=== PATIENT | female | born 1980 | race Caucasian/White ===

== ENCOUNTER → 2019-10-06 | Outpatient (CLI) | payer OTHER, SELFPAY | PROVIDERS: Family Provider Family Medicine; Visit Provider Family Medicine | DX: R92.8 Other abnormal and inconclusive findings on diagnostic imaging of breast (principal) | CPT/HCPCS: 19083 ×2; 85610; 88305; J2001 ×3 ==

== ENCOUNTER 2020-11-19 09:38 | Outpatient (CLI) | payer OTHER, MEDICAID, SELFPAY ==
[2020-11-19 10:28] LABS: CA 125 28.3 U/mL (0-35); Follicle Stimulating Hormone 9.1 mIU/mL; Luteinizing Hormone 17.5 mIU/mL (0.5-41.7)
== END 2020-11-19 09:39 | disposition home or self-care (01) ==
PROVIDERS: Visit Provider Family Medicine
DX: R19.03 Right lower quadrant abdominal swelling, mass and lump (principal)
CPT/HCPCS: 83001; 83002; 86304

== ENCOUNTER 2020-11-19 13:16 | Outpatient (CLI) | payer OTHER, SELFPAY ==
--- NOTE | 2020-11-19 | CT_ITS ---
WS: [id number] CT ABDOMEN PELVIS TECHNIQUE: Contrast-enhanced CT of the abdomen and pelvis with coronal and sagittal reformatted image s. CLINICAL INFORMATION: RLQ ABDOMINAL MASS COMPARISON: Ultrasound to November 18, 2020 DLP: 990.[address] scans at [facility] use at least one of these dose optimization techniques: automat ed exposure control; mA and/or kV adjustment per patient size (includes targeted exams where dose is matched to clinical indication); or iterative reconstruction. FINDINGS: Low-attenuation predominantly cystic very large pelvic mass extending into the upper abdomen in the m idline. Internal enhancing septations with some soft tissue is seen on the recent ultrasound. Large l ow-attenuation mass measures approximately 13.6 x 25.4 x 20.1 CM. This impinges the bladder with flat tening and posterior displacement of the uterus. Mass effect on the abdominal structures with periphe ral displacement of the small and large bowel. This also compresses the retroperitoneal structures wi th flattening of the inferior vena cava. Hepatic granulomas. Normal portal vein and splenic vein. Small esophageal hiatal hernia. Normal splee n. Adrenal glands are normal. Normal renal parenchymal enhancement. No hydronephrosis. Lung bases are well aerated. Suspected right ovarian tissue with peripheral enhancing cyst measuring 1.[address]/CT abdomen pelvis w con* [id number] IMPRESSION: 1. 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 This measures [id number] x 25.4 x 20.1 CM. Internal enhancing s eptations with a small amount of soft tissue better seen on the ultrasound. 2. Differential considerations include serous and mucinous cystadenoma or cyst adenocarcinoma. Recommend MEASUREMENT SPECIALIST consultation for resection. 3. Compression of the underlying bladder and posterior displacement of the sophie alexandra. 4. Compression of the IVC. 5. Peripheral displacement of the abdominal structures. Peripheral displacemen t of surrounding colon and Small bowel.
[2020-11-19] MEDS: iohexol 300 mg/mL 100 mL Btl IV (14:35)
[2020-11-19] MEDS: iohexol 300 mg/mL 50 mL Btl PO (14:36)
== END 2020-11-19 13:17 | disposition home or self-care (01) ==
LOC: RADWPI 13:18
PROVIDERS: Visit Provider Family Medicine
DX: R19.03 Right lower quadrant abdominal swelling, mass and lump (principal); N85.4 Malposition of uterus
CPT/HCPCS: 74177; Q9967

== ENCOUNTER 2020-11-20 20:31 | Emergency (ER) | payer OTHER, SELFPAY ==
[2020-11-20] VITALS (7 sets, daily range): BP systolic 114–135; BP diastolic 80–100; PULSE 68–129; RESP 16–28; TEMP 36.2; O2SAT 94–99; BMI 32.5
--- NOTE | 2020-11-20 20:45 | CTR_ITS ---
PROCEDURE INFORMATION: Exam: CT Abdomen And Pelvis With Contrast Exam date and time: 11/20/2020 8:49 PM Age: 40 years old Clinical indication: Abdominal pain; Generalized; Patient HX: C/O worsening abd pain w known ovarian cyst - po contrast is from CT yesterday TECHNIQUE: Imaging protocol: Computed tomography of the abdomen and pelvis with contrast. Sagittal and coronal reformatted images were created and reviewed. Radiation optimization: All CT scans at this facility use at least one of these dose optimization techniques: automated exposure control; mA and/or kV adjustment per patient size (includes targeted exams where dose is matched to clinical indication); or iterative reconstruction. Contrast material: OMNI 300; Contrast volume: 95 ml; Contrast route: INTRAVENOUS (IV); COMPARISON: CT abdomen pelvis w con* [id number] 11/19/2020 2:34 PM RADIATION DOSE METRICS: Total DLP (mGy-cm): 1016.97 FINDINGS: Lungs: Visualized lungs are clear. Pleural spaces: No pleural effusion. Heart: Visualized portions of the heart are unremarkable. Liver: Multiple calcified granulomas in the liver are stable. Gallbladder and bile ducts: Stable findings consistent with a previous cholecystectomy. Stable dilatation of the biliary ducts, not unexpected in a patient who has had a prior cholecystectomy. Pancreas: The pancreas is unremarkable. No pancreatic ductal dilatation. Spleen: Multiple calcified granulomas in the spleen are stable. Adrenal glands: The right and left adrenal glands are unremarkable. Kidneys and ureters: The right and left kidneys are unremarkable. The right and left ureters are unremarkable. Stomach and bowel: Stable small hiatal hernia. The small bowel is unremarkable. The colon is unremarkable. Appendix: The appendix is visualized and is unremarkable. No findings to suggest acute appendicitis. Intraperitoneal space: Small amount of free fluid in the pelvis. Small amount of free fluid in the pelvis. No free intraperitoneal air. No loculated fluid collections to suggest an abscess. Vasculature: No evidence for aortic aneurysm or aortic dissection. Hepatic veins, portal veins, splenic vein, and SMV are patent. Lymph nodes: No lymphadenopathy. Urinary bladder: The bladder is incompletely filled, which can limit evaluation. No focal abnormality in the bladder however. The bladder is incompletely filled, which can limit evaluation. No focal abnormality in the bladder however. Reproductive: The uterus is unremarkable. Right ovarian cyst with an enhancing wall, possibly representing a degenerating ovarian cyst. This measures 1.8 x 1.6 cm, stable in size (series 2, image 75). Markedly enlarged multi cystic mass emanating from the left ovary. This measures 3.3 x 1.6 x 23.7 cm, stable in size (series 601, image 40 and series 2, image 44). Multiple internal septations and few small areas of soft tissue density in the mass are stable. Bones/joints: Mild degenerative changes at both the right and left hips. Multilevel degenerative changes of varying severity in the visualized spine. Mild scoliosis in the visualized spine. Osseous findings are stable. Soft tissues: The extra-abdominal soft tissues are unremarkable. CT/CT abdomen pelvis w con* [id number] IMPRESSION: 1. Stable appearance of a large left ovarian multicystic mass, suspicious for a serous or mucinous neoplasm. 2. Small hiatal hernia. 3. Small amount of free fluid in the pelvis. 4. Probable degenerating cyst in the right ovary is stable in size. 5. Small amount of free fluid in the pelvis. 6. Incidental/nonacute findings are listed in the report. Radiation Dose CTDIVOL = (mGy): DLP = 1016.97 (mGy-cm)
[2020-11-20] MEDS: sodium chloride 0.9% 1,000 ML 999 ML IV ×2 (20:49→22:14)
[2020-11-20] MEDS: ondansetron 2 mg/ML SDV 2 mL 4 MG IVP (20:49)
[2020-11-20 20:50] LABS: Basophils # 0.1 10^3/uL (0.0-0.1); Basophils % 0.6 %; Eosinophils # 0.1 10^3/uL (0.0-0.8); Eosinophils % 1.2 %; Hematocrit 46.4 % (37.0-47.0); Hemoglobin 14.9 g/dL (11.5-15.3); Lymphocytes # 2.5 10^3/uL (0.8-4.8); Lymphocytes % 28.3 %; Mean Corpuscular HGB Conc 32.1 g/dL (30.0-36.0); Mean Corpuscular Hemoglobin 27.9 pg (28.0-34.0); Mean Corpuscular Volume 86.7 fL (81-99); Mean Platelet Volume 10.4 fL (7.4-10.4); Monocytes # 0.7 10^3/uL (0.2-0.9); Neutrophils # 5.34 10^3/uL (1.8-7.7); Neutrophils % 61.7 %; Nucleated Red Blood Cells % 0 %; Platelet Count 358 10^3/cmm (130-400); Red Blood Count 5.35 10^6/uL (4.1-5.3); Red Cell Distribution Width 14.4 % (12.1-15.1); White Blood Count 8.7 10^3/uL (4.0-10.0)
[2020-11-20] MEDS: morphine 4 mg/mL SDV 1 mL IVP ×2 (20:51→22:14)
--- NOTE | 2020-11-20 21:03 | W.ED.ABDPA2 ---
HPI - Abdominal Pain General: Chief Complaint: Abdominal Pain Stated Complaint: RLQ ABD PAIN Time Seen by Provider: 11/20/20 20:36 Source: patient Mode of arrival: ambulatory Limitations: no limitations History of Present Illness: HPI narrative: 40-year-old female patient presents to the emergency department with acute onset of abdominal pain. She reports was diagnosed yesterday with a large abdominal/pelvic mass. States it was not cancerous so she celebrated by drinking 1/5 of whiskey. She reports lay down to go to sleep at 3 PM this afternoon, had sudden onset of awakening with severe abdominal pain and vomiting. She reports pain is intense and is the worst she has ever felt. 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 Mass measured 3.6 x 25.4 x 20.1 cm. She reports has appointment scheduled with specialty for removal of the mass. She is scheduled with a specialist in [place]. She reports ate at approximately 4 PM this afternoon. She reports bowel movements have been normal. MD elicited complaint: abdominal pain Pain Consistency: constant Location: Periumbilical, RUQ and RLQ Severity: severe Quality: sharp Exacerbating factors: nothing Relieving factors: nothing Associated Symptoms: Reports bloating, heartburn, nausea and vomiting; Denies chills, constipation, diarrhea, dysuria, fever(s) and hematochezia Related Data: Date of Last Menstrual Period: 11/04/20 Review of Systems General: Reports: 10 or more systems reviewed and unremarkable except in HPI and below Const: Denies: fever(s), chills or diaphoresis Eyes: Denies: blurry vision or eye redness ENMT: Denies: throat pain, dental pain or disequilibrium Card: Denies: chest pain, palpitations or irregular heart rhythm Resp: Denies: dyspnea, productive cough, non-productive cough or wheezing GI: Reports: abdominal pain, nausea, vomiting, heartburn and bloating; Denies: diarrhea, constipation, pain on defecation or hematochezia : Denies: difficulty voiding or dysuria Musc: Denies: neck pain or back pain Skin/Breast: Denies: rash or pruritus Neuro: Denies: headache(s), weakness in extremities or behavioral changes Psych: Denies: anxiety or depression Miguel/Lymph: Denies: easy bruising PFSH ED PFSH: Surgical History History of cholecystectomy Family History Mother Cervical cancer Skin cancer Diabetes Social History Smoking and tobacco status: current every day smoker cigarettes Packs smoked per day: 1 Alcohol intake: never Adopted: No Caregiver/support person: No Lives independently: Yes Household members: spouse and children Marital status: Current occupational status: unemployed History of recent travel: No Sexually active: Yes Current gender identity: Female Female Reproductive History: Date of last menstrual period: 11/04/20 Physical Exam Const: COMMON NORMALS: patient oriented x3, healthy appearing, alert and well nourished GENERAL APPEARANCE: cooperative, well kempt, well developed, in distress (pain), anxious and well hydrated; not ill appearing, not frail appearing and no odor of alcohol detected NUTRITIONAL APPEARANCE: obese ORIENTATION/CONSCIOUSNESS: Yes awake, Yes oriented to person, Yes oriented to place and Yes oriented to time HENMT: COMMON NORMALS: normocephalic, atraumatic, Normal external nose present and moist oral mucous membranes HEAD & SCALP: normal to inspection, normocephalic and atraumatic FACE & SINUS: normal facial exam and face symmetric NOSE: Normal external nose present Eye: COMMON NORMALS: Equal, round and reactive pupils present and EOMs intact bilaterally GENERAL EYE: appearance normal, both eyes and all related structures PUPIL: Yes Equal, round and reactive pupils present Neck/C-Spine: COMMON NORMALS: full ROM, no lymphadenopathy and supple GENERAL: Yes normal visual inspection and Yes trachea midline CERVICAL SPINE: Yes cervical ROM normal Lymph: LYMPHATIC: no lymphadenopathy noted Chest: COMMONS NORMALS: normal inspection of the chest and normal palpation of entire chest wall Resp: COMMON NORMALS: normal respiratory effort, No retractions and clear to auscultation bilaterally EFFORT & INSPECTION: Yes able to speak in complete sentences, Yes symmetric chest movement and Yes labored (due to abdominal pain) AUSCULTATION: clear to auscultation bilaterally Cardio: COMMON NORMALS: regular rhythm, S1 normal heart sound present, S2 normal heart sound present and Peripheral pulses 2+ throughout RATE: tachycardic RHYTHM: regular rhythm HEART SOUNDS: S1 normal heart sound present and S2 normal heart sound present PERIPHERAL PULSES: Peripheral pulses 2+ throughout GI: INSPECTION: No abdominal wall ecchymosis and Yes abdominal distension AUSCULTATION: Yes Hypoactive bowel sounds present PALPATION: Yes Tenderness to palpation present (GI) Details: RLQ, RUQ and other (Periumbilical), Yes Guarding due to palpation present (GI) in the RLQ and in the RUQ, Yes Rigid due to palpation Location: RLQ and RUQ, No Hernia present, Yes Palpable mass present (Centrally periumbilical), No Ascites present, No Abdominal wall crepitus present and Yes Rebound tenderness present : BLADDER/KIDNEY EXAM: Yes CVA tenderness on the right EXTERNAL FEMALE EXAM: No Hernia present Back/Pelvis: COMMON NORMALS: thoracic and lumbar spine normal to inspection Extremity: COMMON NORMALS: normal to inspection and capillary refill normal Neuro: COMMON NORMALS: patient oriented x3 and no focal motor deficits SENSORIUM/ORIENTATION: Yes alert, Yes oriented to person, Yes oriented to place and Yes oriented to time Psych: COMMON NORMALS: mental status grossly normal, Normal thought process present and cooperative APPEARANCE: Yes well kempt ACTIVITY/MOTOR BEHAVIOR: Yes appropriate eye contact THOUGHT PROCESS: Normal thought process present Skin: COMMON NORMALS: no rashes or lesions noted and turgor normal GENERAL SKIN EXAM: no rashes or lesions noted and turgor normal Course Vital Signs: Vital signs: Vital Signs Temperature 97.2 F L 11/20/20 20:37 Pulse Rate 68 11/21/20 00:53 Respiratory Rate 18 11/21/20 00:53 Blood Pressure 126/44 11/21/20 00:53 Pulse Oximetry 96 11/21/20 00:53 MDM - Abdominal Pain MDM Narrative: Medical decision making narrative: 40-year-old female patient presents to the emergency department with severe abdominal pain following ingestion of 1/5 of whiskey. Abdominal pain upon initial presentation was perfused. She was administered morphine Zofran and Pepcid due to complaints of pain and GERD symptoms. CT of the abdomen and pelvis completed due to known large abdominal mass and amount of pain she was experiencing. No acute changes were appreciated on CT comparison, previous CT completed yesterday. Lipase 34, chemistry unremarkable, urinalysis without urinary tract infection. During her stay, pain was controlled with additional dose of morphine, she was administered GI cocktail due to heartburn. Case was discussed with Dr. Guerrero, since pain was controlled with use of medication, prescription for Percocet and Zofran for nausea was discharged home with the patient. She was able to rest during her stay, has requested to go home as she has follow-up with specialty in [place] for the abdominal mass next week. She was instructed to return to the emergency department if she developed worsening pain. Patient was counseled at length to refrain from NSAIDs and alcohol. Lab Data: Labs: Lab Results 11/20/20 11/20/20 11/20/20 Range/Units 20:45 20:45 20:45 WBC 8.7 (4.0-10.0) 10^3/ uL RBC 5.35 H (4.1-5.3) 10^6/u L Hgb 14.9 (11.5-15.3) g/dL Hct 46.4 (37.0-47.0) % MCV 86.7 (81-99) fL MCH 27.9 L (28.0-34.0) pg MCHC 32.1 (30.0-36.0) g/dL RDW 14.4 (12.1-15.1) % Plt Count 358 (130-400) 10^3/c mm MPV 10.4 (7.4-10.4) fL Neut % (Auto) 61.7 % Lymph % (Auto) 28.3 % [place] % (Auto) 8.0 % Eos % (Auto) 1.2 % Baso % (Auto) 0.6 % Neut # (Auto) 5.34 (1.8-7.7) 10^3/u L Lymph # (Auto) 2.5 (0.8-4.8) 10^3/u L [place] # (Auto) 0.7 (0.2-0.9) 10^3/u L Eos # (Auto) 0.1 (0.0-0.8) 10^3/u L Baso # (Auto) 0.1 (0.0-0.1) 10^3/u L Nucleated RBC % (a uto) 0 % Nucleated RBCs # 0.0 /100WBC Sodium 136 (136-145) mmol/L Potassium 3.6 (3.5-5.1) mmol/L Chloride 99 (98-107) mmol/L Carbon Dioxide 22 (22-29) mmol/L Anion Gap 18.6 (5-19) BUN 3 L (6-20) mg/dL Creatinine 0.6 (0.5-0.9) mg/dL GFR Calculation 109.6 (90-130) mL/min Glucose 97 (65-115) mg/dL Calculated Osmolal ity 278 L (285-295) mOsm/k g Calcium 8.7 (8.5-10.5) mg/dL Total Bilirubin 0.2 (0.15-1.2) mg/dL AST 15 (0-32) U/L ALT 13 (0-33) U/L Alkaline Phosphata se 81 (35-105) IU/L Total Protein 8.3 (6.6-8.7) g/dL Albumin 4.3 (3.5-5.2) g/dL Globulin 4.0 (1.3-4.6) g/dL Lipase 34 (13-60) U/L Urine Color (Yellow) Urine Appearance (CLEAR) Urine pH (5-7) Ur Specific Gravit y (1.005-1.030) Urine Protein (Negative) Urine Glucose (UA) (Normal) Urine Ketones (Negative) Urine Blood (Negative) Urine Nitrate (Negative) Urine Bilirubin (Negative) Urine Urobilinogen (Negative) mg/dL Ur Leukocyte Marianna ase (Negative) Urine RBC (0-2) /hpf Urine WBC (0-5) /hpf Ur Squamous Epith Cells (0-5) /hpf Amorphous Sediment Urine Bacteria (NONE) /hpf Urine HCG, Qual (Negative) Ethyl Alcohol 91 H (0-10) mg/dL 11/20/20 11/20/20 Range/Units 23:37 23:37 WBC (4.0-10.0) 10^3/ uL RBC (4.1-5.3) 10^6/u L Hgb (11.5-15.3) g/dL Hct (37.0-47.0) % MCV (81-99) fL MCH (28.0-34.0) pg MCHC (30.0-36.0) g/dL RDW (12.1-15.1) % Plt Count (130-400) 10^3/c mm MPV (7.4-10.4) fL Neut % (Auto) % Lymph % (Auto) % [place] % (Auto) % Eos % (Auto) % Baso % (Auto) % Neut # (Auto) (1.8-7.7) 10^3/u L Lymph # (Auto) (0.8-4.8) 10^3/u L [place] # (Auto) (0.2-0.9) 10^3/u L Eos # (Auto) (0.0-0.8) 10^3/u L Baso # (Auto) (0.0-0.1) 10^3/u L Nucleated RBC % (a uto) % Nucleated RBCs # /100WBC Sodium (136-145) mmol/L Potassium (3.5-5.1) mmol/L Chloride (98-107) mmol/L Carbon Dioxide (22-29) mmol/L Anion Gap (5-19) BUN (6-20) mg/dL Creatinine (0.5-0.9) mg/dL GFR Calculation (90-130) mL/min Glucose (65-115) mg/dL Calculated Osmolal ity (285-295) mOsm/k g Calcium (8.5-10.5) mg/dL Total Bilirubin (0.15-1.2) mg/dL AST (0-32) U/L ALT (0-33) U/L Alkaline Phosphata se (35-105) IU/L Total Protein (6.6-8.7) g/dL Albumin (3.5-5.2) g/dL Globulin (1.3-4.6) g/dL Lipase (13-60) U/L Urine Color Yellow (Yellow) Urine Appearance Clear (CLEAR) Urine pH 5 (5-7) Ur Specific Gravit y 1.010 (1.005-1.030) Urine Protein Neg (Negative) Urine Glucose (UA) Norm (Normal) Urine Ketones Negative (Negative) Urine Blood Trace H (Negative) Urine Nitrate Negative (Negative) Urine Bilirubin Neg (Negative) Urine Urobilinogen Norm (Negative) mg/dL Ur Leukocyte Marianna ase Negative (Negative) Urine RBC 0-4 H (0-2) /hpf Urine WBC None (0-5) /hpf Ur Squamous Epith Cells 15-25 H (0-5) /hpf Amorphous Sediment Not Reportable Urine Bacteria Trace (NONE) /hpf Urine HCG, Qual Negative (Negative) Ethyl Alcohol (0-10) mg/dL Imaging Data ^: CT Abd/Pel: Radiologist's impression: [facility] [address] [address] [address] Scan Report Signed Patient: Génesis Nance #: [id number] : 1980Acct#:[id number] Age/Sex: 40 / FADM Date: 11/20/20 Loc: ERRoom/Bed: Attending Dr: Ordering Provider/Ordering MD: Chitra Guerin Date of Service: 11/20/20 Procedure(s): CT abdomen pelvis w con* [id number] Accession Number(s): [id number] Report Number: [id number] PROCEDURE INFORMATION: Exam: CT Abdomen And Pelvis With Contrast Exam date and time: 11/20/2020 8:49 PM Age: 40 years old Clinical indication: Abdominal pain; Generalized; Patient HX: C/O worsening abd pain w known ovarian cyst - po contrast is from CT yesterday TECHNIQUE: Imaging protocol: Computed tomography of the abdomen and pelvis with contrast. Sagittal and coronal reformatted images were created and reviewed. Radiation optimization: All CT scans at this facility use at least one of these dose optimization techniques: automated exposure control; mA and/or kV adjustment per patient size (includes targeted exams where dose is matched to clinical indication); or iterative reconstruction. Contrast material: OMNI 300; Contrast volume: 95 ml; Contrast route: INTRAVENOUS (IV); COMPARISON: CT abdomen pelvis w con* [id number] 11/19/2020 2:34 PM RADIATION DOSE METRICS: Total DLP (mGy-cm): 1016.97 FINDINGS: Lungs: Visualized lungs are clear. Pleural spaces: No pleural effusion. Heart: Visualized portions of the heart are unremarkable. Liver: Multiple calcified granulomas in the liver are stable. Gallbladder and bile ducts: Stable findings consistent with a previous cholecystectomy. Stable dilatation of the biliary ducts, not unexpected in a patient who has had a prior cholecystectomy. Pancreas: The pancreas is unremarkable. No pancreatic ductal dilatation. Spleen: Multiple calcified granulomas in the spleen are stable. Adrenal glands: The right and left adrenal glands are unremarkable. Kidneys and ureters: The right and left kidneys are unremarkable. The right and left ureters are unremarkable. Stomach and bowel: Stable small hiatal hernia. The small bowel is unremarkable. The colon is unremarkable. Appendix: The appendix is visualized and is unremarkable. No findings to suggest acute appendicitis. Intraperitoneal space: Small amount of free fluid in the pelvis. Small amount of free fluid in the pelvis. No free intraperitoneal air. No loculated fluid collections to suggest an abscess. Vasculature: No evidence for aortic aneurysm or aortic dissection. Hepatic veins, portal veins, splenic vein, and SMV are patent. Lymph nodes: No lymphadenopathy. Urinary bladder: The bladder is incompletely filled, which can limit evaluation. No focal abnormality in the bladder however. The bladder is incompletely filled, which can limit evaluation. No focal abnormality in the bladder however. Reproductive: The uterus is unremarkable. Right ovarian cyst with an enhancing wall, possibly representing a degenerating ovarian cyst. This measures 1.8 x 1.6 cm, stable in size (series 2, image 75). Markedly enlarged multi cystic mass emanating from the left ovary. This measures 3.3 x 1.6 x 23.7 cm, stable in size (series 601, image 40 and series 2, image 44). Multiple internal septations and few small areas of soft tissue density in the mass are stable. Bones/joints: Mild degenerative changes at both the right and left hips. Multilevel degenerative changes of varying severity in the visualized spine. Mild scoliosis in the visualized spine. Osseous findings are stable. Soft tissues: The extra-abdominal soft tissues are unremarkable. CT/CT abdomen pelvis w con* [id number] IMPRESSION: 1. Stable appearance of a large left ovarian multicystic mass, suspicious for a serous or mucinous neoplasm. 2. Small hiatal hernia. 3. Small amount of free fluid in the pelvis. 4. Probable degenerating cyst in the right ovary is stable in size. 5. Small amount of free fluid in the pelvis. 6. Incidental/nonacute findings are listed in the report. Radiation Dose CTDIVOL = (mGy): DLP = 1016.97 (mGy-cm) Dictated By:Amber Francisco MD Signed By:Amber Franciscoigned Date/Time:11/20/202124 Discharge Plan Discharge Patient Disposition: Home Clinical Impression: Abdominal pain Qualifiers: Abdominal location: generalized Qualified Code(s): R10.84 - Generalized abdominal pain Abdominal mass Qualifiers: Abdominal location: other location Qualified Code(s): R19.09 - Other intra-abdominal and pelvic swelling, mass and lump Elevated ETOH level Qualifiers: Blood alcohol level: 80-99 mg/100 ml Qualified Code(s): Y90.4 - Blood alcohol level of 80-99 mg/100 ml Condition: Stable Prescriptions: New Percocet 5-325 mg tablet 1 tab PO Q6H PRN (Reason: pain) Qty: 10 RF: 0 Zofran 4 mg tablet 4 mg PO Q4H 5 Days Qty: 14 RF: 0 No Action lansoprazole 30 mg capsule,delayed release(DR/EC) 30 mg PO DAILY RF: 0 triamcinolone acetonide 0.1 % ointment 1 applic topical BID Qty: 30 RF: 0 Discharge Orders: Discharge ED (Routine); Ordered 11/21/20 Ordered By: Cihtra Guerin Referrals: Rupert Reynaga MD [Primary Care Provider] - Discharge Diet: GI Soft Discharge Activity: Limit activity as instructed Patient Instructions: Soft Diet (ED), Alcohol Intoxication (ED), Abdominal Pain (ED) Activity Restrictions/Additional Instructions: Rest at home today and tomorrow, follow-up with specialty services as scheduled for tumor removal. Return to the emergency department if you develop worsening symptoms No alcohol, avoid fried greasy fatty or spicy foods, eat a soft diet to help pass bowel movements Do not take pain medication with alcohol as this can result in serious illness. 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
[2020-11-20] MEDS: iohexol 300 mg/mL 100 mL Btl IV (21:08)
[2020-11-20] MEDS: famotidine 20 mg/2 mL INJ 40 MG IVP (21:09)
[2020-11-20 21:10] LABS: Alanine Aminotransferase 13 U/L (0-33); Albumin Level 4.3 g/dL (3.5-5.2); Alkaline Phosphatase 81 IU/L (35-105); Anion Gap 18.6 (5-19); Aspartate Amino Transferase 15 U/L (0-32); Blood Urea Nitrogen 3 mg/dL (6-20); Calcium 8.7 mg/dL (8.5-10.5); Carbon Dioxide 22 mmol/L (22-29); Chloride 99 mmol/L (98-107); Glomerular Filtration Rate 109.6 mL/min (90-130); Glucose 97 mg/dL (65-115); Lipase 34 U/L (13-60); Osmolality Calculated 278 mOsm/kg (285-295); Potassium 3.6 mmol/L (3.5-5.1); Sodium 136 mmol/L (136-145); Total Bilirubin 0.2 mg/dL (0.15-1.2); Total Protein 8.3 g/dL (6.6-8.7)
[2020-11-20] MEDS: metoclopramide 5 mg/mL SDV 2 mL 10 MG IVP (21:50)
[2020-11-20] MEDS: lidocaine 2% viscous 15 ML, aluminum-mag hydrox-simethicon 30 ML, sucralfate oral liq 1 GM PO (21:52)
[2020-11-20 21:54] LABS: Alcohol Level 91 mg/dL (0-10)
[2020-11-20 23:44] LABS: Add Urine Microscopic? YES; Bilirubin Urine Neg (Negative); Blood Urine Trace (Negative); Glucose Urine UA Norm (Normal); Ketones Urine Negative (Negative); Leukocyte Esterase Urine Negative (Negative); Nitrate Urine Negative (Negative); Protein Urine Neg (Negative); Urine Appearance Clear (CLEAR); Urine Color Yellow (Yellow); Urobilinogen Urine Norm (Negative); pH Urine 5 (5-7)
[2020-11-20 23:50] LABS: Add Urine Culture? No; Bacteria Urine TRACE /hpf; RBC Urine 0-4 /hpf (0-2); Squamous Epithelial Cell Urine 15-25 /hpf (0-5)
[2020-11-21 00:53] VITALS: BP 126/44; PULSE 68; RESP 18; O2SAT 96
== END 2020-11-21 01:01 | disposition home or self-care (01) ==
PROVIDERS: Emergency Provider Nurse Practitioner Family; PCP Family Medicine
DX: R10.84 Generalized abdominal pain (principal); R19.09 Other intra-abdominal and pelvic swelling, mass and lump; Y90.4 Blood alcohol level of 80-99 mg/100 ml; F17.210 Nicotine dependence, cigarettes, uncomplicated; F10.929 Alcohol use, unspecified with intoxication, unspecified
CPT/HCPCS: 12345; 74177; 80053; 80307; 81001; 81025; 83690; 85025; 96361; 96374; 96375; 96376; 99283; 99284; J2270; J2405; J2765; J3490; J7040; Q9967

== ENCOUNTER → 2021-08-26 10:39 | Outpatient (BNVA) | payer MEDICAID, SELFPAY | PROVIDERS: PCP Family Medicine; Visit Provider Surgery | DX: Z20.822 Contact with and (suspected) exposure to COVID-19 (principal) | CPT/HCPCS: 87635 ==

== ENCOUNTER 2021-09-01 05:37 | Day surgery (SDC) | payer MEDICAID, SELFPAY ==
[2021-08-31 16:55] VITALS: BMI 33.5
[2021-09-01] VITALS (7 sets, daily range): BP systolic 136–154; BP diastolic 82–93; PULSE 87–101; RESP 17–23; TEMP 36.8–37.1; O2SAT 96–100
[2021-09-01] MEDS: sodium chloride 0.9% 1,000 ML 30 ML IV (06:26)
--- NOTE | 2021-09-01 06:26 | W.PM.OPSUD ---
Surgery/Procedure H&P Update DATE OF PROCEDURE: September 01, 2021 DATE H&P PERFORMED: 08/09/21 H&P UPDATE INFORMATION: No changes to prior documentation PREOP DIAGNOSIS: Incisional hernia. PLANNED PROCEDURE: Operation Date: 09/01/21 07:00 Proposed Procedures p Incisional Hernia Repair w/ poss Mesh [id number] K43.2(Not Applicable) - Idris Dudley MD
--- NOTE | 2021-09-01 07:26 | ANES.PREANE2 ---
Pre-Anesthetic Assessment Pre-Anesthetic Assessment: Height/Weight: Height 1.63 m Weight 88.451 kg Temp Pulse Resp BP Pulse Ox 98.2 F 97 18 154/93 99 09/01/21 05:56 09/01/21 05:56 09/01/21 05:56 09/01/21 05:56 09/01/21 05:56 Preop Diagnosis: Incisional hernia. Proposed Procedure: Operation Date: 09/01/21 07:00 Proposed Procedures p Incisional Hernia Repair w/ poss Mesh [id number] K43.2(Not Applicable) - Idris Dudley MD Was Beta Stacia taken within 24 hours: N/A Was Clonidine taken within 24 hours: N/A Last intake: Intake Last Liquid Date 08/31/21 Last Liquid Time 21:00 Last Solid Date 08/31/21 Last Solid Time 21:00 Social: Social History: Tobacco and No alcohol Exam: Pre-Anes Outpt Exam: alert, oriented x 3 and regular rate & rhythm Airway: Submandibular: WNL Cervical ROM: WNL MP: 2 Dentition: Chipped Pulmonary: Pulmonary: COPD GI: GI: GERD Metabolic: Metabolic: Morbid obesity Anesthetic Plan: ASA status: 3 Anesthesia: General Risk of > 500 ml blood loss (7ml/kg in children): No Meds/Allergies Current Medications: Current Medications Generic Name Dose Route Start Last Admin Trade Name Freq PRN Reason Stop Dose Admin Sodium Chloride 1,000 mls @ 30 ml s/hr 09/01/21 05:45 09/01/21 06:26 Sodium Chloride 0.9% IV 09/02/21 05:44 30 mls/hr .Q24H JESUS ALBERTO Administration PFSH Anesthesia PFSH: Surgical History History of cholecystectomy Family History Mother Cervical cancer Skin cancer Diabetes Social History Smoking and tobacco status: current every day smoker cigarettes Packs smoked per day: 1 Alcohol intake: never Adopted: No Caregiver/support person: No Lives independently: Yes Household members: spouse and children Marital status: Current occupational status: unemployed History of recent travel: No Sexually active: Yes Current gender identity: Female Female Reproductive History: Date of last menstrual period: 11/04/20 Data Anesthesia Cardiac Studies: No Data to Display
--- NOTE | 2021-09-01 07:58 | P.OP_ITS ---
Operative Report Date of procedure: September 01, 2021 Pre-op Diagnosis: Incisional hernia. Post-op diagnosis: same Procedure Done: Repair of incisional hernia with Ventrio mesh. Pathology: none sent Surgeon: Idris Dudley Anesthesia: General Estimated blood loss (mL): 5 Complications: None. Condition: stable Disposition: PACU Procedure: The patient was brought to the operating room and was placed in a supine position on the operating room table. General endotracheal anesthesia was induced. The abdomen was prepped and draped in a sterile fashion. A combination of 1% lidocaine with 1 to 100,000 parts epinephrine and 0.5% bupivacaine was used throughout the procedure for postoperative anesthesia. The patient's midline scar above the umbilicus was elliptically excised. Cautery was used to divide the subcutaneous tissue and the hernia sac was quickly identified. This was elevated with a hemostat and was cleared on all sides down to the fascia using cautery where the hernia sac was eventually opened and was completely removed, revealing a defect that measured perhaps 9 or 10 cm in greatest diameter. The adhesions underneath the fascia were all freed up. Some of the omental adhesions were tied with ligatures of 2-0 Vicryl upon division to ensure hemostasis. The fascial edges were in good condition and were somewhat lax, allowing for some approximation but it became clear that a piece of mesh was going to be needed in the repair. The wound was irrigated with saline. A 4.5 inch round piece of Ventrio mesh was obtained and was placed into the peritoneal cavity. The mesh was attached to the abdominal wall behind the fascia with some through and through sutures of #[address] around the periphery. Some sutures of 0 Prolene were then used to bring the actual mu sculofascial edges down to the top of the mesh. This appeared to provide very good repair of the defect under no significant tension. The wound was extensively irrigated once again. The subcutaneous tissue was brought together with several simple sutures of 3-0 Vicryl. The dermis was closed using multiple inverted interrupted sutures of 3- 0 Vicryl. The skin was finally reapproximated using a running subcuticular suture of 3-0 Vicryl. Benzoin and Steri-Strips were placed over the incision and a sterile bandage followed. The patient was taken to the recovery area in stable condition postoperatively.
--- NOTE | 2021-09-01 08:37 | ANE.PACU2 ---
Inpatient post-anesthesia follow up: Airway intact: Yes Vital signs: Temperature 98.7 F Pulse Rate 90 Respiratory Rate 18 Blood Pressure 154/82 Pulse Oximetry 100 Oxygen Delivery Me thod Room Air Oxygen Flow Rate Fraction of Inspir ed Oxygen Hydration adequate: Yes Nausea and vomiting: No Pain level: 3 Mental status: Baseline
[2021-09-01] MEDS: HYDROmorphone 1 mg/mL INJ 1 mL 0.5 MG IVP (09:00)
[2021-09-01] MEDS: oxyCODONE-APAP 5-325 mg Tablet 1 TAB PO (09:26)
== END 2021-09-01 10:00 | disposition home or self-care (01) ==
PROVIDERS: PCP Family Medicine; Visit Provider Surgery
PROC: (CPT 49560; principal; 2021-09-01 07:00)
DX: K43.2 Incisional hernia without obstruction or gangrene (principal); K66.0 Peritoneal adhesions (postprocedural) (postinfection); F17.210 Nicotine dependence, cigarettes, uncomplicated; Z90.49 Acquired absence of other specified parts of digestive tract
CPT/HCPCS: 49560; 49568; 96374; J0690; J1100; J1170; J2405; J2704; J2710; J3010; J3490; J7030

== ENCOUNTER 2021-12-29 13:08 | Outpatient (CLI) | payer MEDICAID, SELFPAY ==
--- NOTE | 2021-12-29 13:11 | MM_ITS ---
WS: [id number] BILATERAL 3D TOMOSYNTHESIS DIGITAL SCREENING MAMMOGRAPHY WITH CAD CLINICAL INFORMATION: SCREENING HISTORY: Screening mammogram. No current complaints. COMPARISON: TECHNIQUE: Bilateral CC and MLO views. FINDINGS: Scattered fibroglandular densities bilaterally. Stable bilateral biopsy markers with adjacent stable ovoid nodules. No suspicious focal mass, asymmetry, calcifications, or architectural distortion. No e vidence of malignancy. MM/[place] [id number] IMPRESSION: BI-RADS: 2-Benign FOLLOW UP: 1 Year Follow-up Recommend return to annual screening mammography.
== END 2021-12-29 13:09 | disposition home or self-care (01) ==
LOC: RADSHAW 13:10
PROVIDERS: PCP Family Medicine; Visit Provider Family Medicine
DX: Z12.31 Encounter for screening mammogram for malignant neoplasm of breast (principal)
CPT/HCPCS: 77063; 77067

== ENCOUNTER 2022-04-25 12:01 | Outpatient (CLI) | payer MEDICAID, SELFPAY ==
--- NOTE | 2022-04-25 | XR_ITS ---
WS: [id number] Lumbar spine with flexion, extension, and neutral lateral, 04/25/2022 Clinical Data: VERTEBROGENIC LOW BACK PAIN Comparison: None. Findings: No compression fractures or subluxation is seen. No disc space narrowing is seen. No limitation of motion or subluxation is seen. There are clips in the upper abdomen from a cholecystectomy. XR/XR lumbar spine f/e only [id number] Impression: Negative lateral lumbar spine.
--- NOTE | 2022-04-25 12:30 | MR_ITS ---
WS: [id number] MRI LUMBAR SPINE NONCONTRAST TECHNIQUE: Sagittal T1, T2 and STIR imaging. Axial T1 and T2 imaging. CLINICAL INFORMATION: LOW BACK PAIN COMPARISON: None. FINDINGS: Mild lumbar curve. No acute compression. No high-grade central canal stenosis. S-shaped thoracolumbar scoliosis. Small disc protrusions in the cervical spine at C5-C6 and C6-C7 with mild central canal s tenosis. L1-L2: Mild annular bulging. Slight narrowing of the RIGHT subarticular recess. Mild facet arthropath y. Spinal canal and foramen are patent. L2-L3: Mild annular bulging. Slight effacement of ventral thecal sac. Slight narrowing of the RIGHT s ubarticular recess. Mild facet arthropathy. L3-L4: Mild annular bulging. Mild facet arthropathy. Tiny RIGHT foraminal protrusion with mild RIGHT and no significant LEFT foraminal narrowing. L4-L5: Mild annular bulging with slight effacement of ventral thecal sac. LEFT eccentric disc bulge w ith mild LEFT foraminal narrowing. RIGHT foramen is patent. Mild facet arthropathy with ligamentum fl avum hypertrophy. L5-S1: Mild annular bulging with slight effacement of ventral thecal sac. Mild LEFT foraminal narrowi ng. Mild facet arthropathy. Spinal canal is patent. Visualized pelvic bony structures: Normal. Paravertebral soft tissues: Normal. MR/MR lumbar spine wo con* [id number] IMPRESSION: 1. S-shaped thoracolumbar scoliosis. No acute compression. 2. Tiny RIGHT foraminal protrusion L3-L4 with mild RIGHT foraminal narrowing a nd slight encroachment on the exiting L3 nerve root. Recommend correlation for RIGHT L3 nerve root symptoms. 3. Mild LEFT L4-L5 and L5-S1 foraminal narrowing. 4. Annular bulging L1-L2 with slight narrowing of the RIGHT subarticular reces s. 5. Mild facet arthropathy L4-L5 and L5-S1. 6. Tiny central protrusions C5-C6 and C6-C7 with mild central canal stenosis.
== END 2022-04-25 12:02 | disposition home or self-care (01) ==
LOC: RAD 12:02
PROVIDERS: PCP Family Medicine; Visit Provider Family Medicine
DX: M54.50 Low back pain, unspecified (principal); M41.9 Scoliosis, unspecified; M51.26 Other intervertebral disc displacement, lumbar region; M12.88 Other specific arthropathies, not elsewhere classified, other specified site; M50.223 Other cervical disc displacement at C6-C7 level; M50.222 Other cervical disc displacement at C5-C6 level
CPT/HCPCS: 72120; 72148

== ENCOUNTER 2022-05-29 20:00 | Outpatient (CLI) | payer MEDICAID, SELFPAY | END 2022-05-29 20:01 | disposition home or self-care (01) | LOC: SLEEP 05-30 08:29 | PROVIDERS: PCP Family Medicine; Visit Provider Anesthesiology Pain Medicine | DX: G47.10 Hypersomnia, unspecified (principal); R06.03 Acute respiratory distress; R53.83 Other fatigue | CPT/HCPCS: 95810 ==

== ENCOUNTER → 2022-07-04 13:10 | Outpatient (BNVA) | payer MEDICAID, SELFPAY | PROVIDERS: PCP Family Medicine; Referring Provider Anesthesiology Pain Medicine; Visit Provider Orthopaedic Surgery | DX: M41.20 Other idiopathic scoliosis, site unspecified (principal); M41.84 Other forms of scoliosis, thoracic region; M41.86 Other forms of scoliosis, lumbar region; M48.02 Spinal stenosis, cervical region; M25.78 Osteophyte, vertebrae | CPT/HCPCS: 72020; 72050 ==

== ENCOUNTER 2022-08-21 08:05 | Outpatient (CLI) | payer MEDICAID, SELFPAY ==
--- NOTE | 2022-08-21 08:00 | MR_ITS ---
WS: [id number] MRI CERVICAL SPINE NONCONTRAST TECHNIQUE: Sagittal T1, T2 and STIR imaging. Axial T2, gradient, and fiesta imaging. CLINICAL INFORMATION: pain COMPARISON: None FINDINGS: Straightening with reversal normal cervical lordosis. Cord signal is normal. Disc bulging worse at C5 -C6 and C6-C7. C2-C3: Mild LEFT and no significant RIGHT foraminal narrowing. Mild facet arthropathy. Spinal canal i s patent. C3-C4: Mild disc bulging with osteophytic ridging. Mild facet arthropathy. Mild LEFT and no significa nt RIGHT foraminal narrowing. C4-C5: Slight anterolisthesis. Mild disc bulging with osteophytic ridging. Mild bilateral foraminal n arrowing. Mild facet arthropathy. C5-C6: Mild disc osteophyte complex with endplate ridging. Mild RIGHT greater than LEFT foraminal pierce rowing. Spinal canal is patent. Mild facet arthropathy. C6-C7: Disc osteophyte complex with endplate ridging. Mild central canal stenosis with slight contact of the cervical cord. Mild to moderate RIGHT and mild LEFT foraminal narrowing. C7-T1: No significant disc bulging. Spinal canal and foramen are patent Visualized brain stem structures: Normal. Prevertebral soft tissues: Normal. MR/MR cervical spin wo con* [id number] IMPRESSION: 1. Straightening with slight reversal of the normal cervical lordosis. 2. Disc bulging worse at C5-C6 and C6-C7 with mild central canal stenosis wors e at C6-C7. 3. Mild to moderate bony foraminal narrowing worse at RIGHT C5-C6 and RIGHT C6 -C7 worse at RIGHT C6-C7.
== END 2022-08-21 08:06 | disposition home or self-care (01) ==
LOC: RAD 08:07
PROVIDERS: PCP Family Medicine; Visit Provider Orthopaedic Surgery
DX: M50.33 Other cervical disc degeneration, cervicothoracic region (principal); M48.02 Spinal stenosis, cervical region
CPT/HCPCS: 72141

== ENCOUNTER 2023-04-09 11:22 | Outpatient (CLI) | payer MEDICAID, SELFPAY ==
--- NOTE | 2023-04-09 11:28 | MM_ITS ---
WS: [email or web address] VIEWS: MLO and CC views both breasts. 3D digital tomosynthesis is also included in this exam. Comparison made with prior exam of 02/05/2019, 09/02/2019, 12/29/2021,. Findings: There was no sign of mass, architectural distortion or suspicious calcification in either breast. Sta ble appearing nodular densities in both breasts.There are areas of scattered fibroglandular density MM/[place] [id number] Impression: BI-RADS: 2-Benign finding. FOLLOW-UP: 1 Year Follow-up This mammogram was also analyzed by the Computer Aided Detection System R2 Imag e Patient Transportation Driver.
== END 2023-04-09 11:23 | disposition home or self-care (01) ==
PROVIDERS: PCP Family Medicine; Visit Provider Family Medicine
DX: Z12.31 Encounter for screening mammogram for malignant neoplasm of breast (principal)
CPT/HCPCS: 77063; 77067

== ENCOUNTER → 2023-08-06 14:27 | Outpatient (BNVA) | payer MEDICAID, SELFPAY | PROVIDERS: PCP Family Medicine; Visit Provider Podiatrist Foot & Ankle Surgery | DX: M20.12 Hallux valgus (acquired), left foot; M20.11 Hallux valgus (acquired), right foot; M21.611 Bunion of right foot; M21.612 Bunion of left foot | CPT/HCPCS: 73630 ==